=== PATIENT | female | born 1935 | race Caucasian/White ===

== ENCOUNTER 2022-03-16 07:59 | Inpatient (IN) | payer MEDICARE ==
[~2022-03-16] VITALS: Ht 160 cm; Wt 84.7 kg
[2022-03-16 08:20] LABS: BASOPHILS % (AUTO) 0.3 % (0.0-5.0); EOSINOPHILS % (AUTO) 0.9 % (0.0-8.0); HEMATOCRIT 34.1 % (36-48); LYMPHOCYTES % (AUTO) 18.7 % (21.0-51.0); MEAN CORPUSCULAR HEMOGLOBIN 28.5 pg (27.0-33.0); MEAN CORPUSCULAR HGB CONC 32.6 g/dL (32.0-36.0); MEAN CORPUSCULAR VOLUME 87.7 fL (79-99); MONOCYTES % (AUTO) 6.5 % (3.0-13.0); NEUTROPHILS % (AUTO) 73.3 % (40.0-77.0); PLATELET COUNT (AUTO) 183 K/uL (130-400); RED BLOOD CELL COUNT(AUTO) 3.89 MIL/uL (4.00-5.50); RED CELL DISTRIBUTION WIDTH 13.9 % (11.0-15.5); WHITE BLOOD COUNT (AUTO) 11.5 K/uL (4.8-10.8)
[2022-03-16 08:28] LABS: CREATININE 1.6 mg/dL (0.5-1.5); POTASSIUM 4.5 mmol/L (3.5-5.1)
[2022-03-16 08:33] LABS: ALBUMIN 2.8 g/dL (3.5-5.0); BILIRUBIN,TOTAL 0.5 mg/dL (0.2-1.0); TOTAL PROTEIN, SERUM 6.5 g/dL (6.0-8.3)
[2022-03-16 08:50] LABS: PARTIAL THROMBOPLASTIN TIME 42.6 SEC (26.3-35.5)
[2022-03-16 09:00] LABS: MAGNESIUM 2.5 mg/dL (1.80-2.40); THYROID STIMULATING HORMONE 5.02 uIU/mL (0.36-3.74)
[2022-03-16] MEDS ORDERED: ACETAMINOPHEN 325 MG TAB PO PRN ×3 (09:00→09:30)
[2022-03-16] MEDS ORDERED: ONDANSETRON 4MG INJ IVP PRN (09:00)
[2022-03-16 09:09] LABS: INR 3.81 (0.85-1.15); PROTHROMBIN TIME 36.8 SEC (9.6-11.6)
[2022-03-16] MEDS ORDERED: WARF-57 PO ×2 (09:13→10:05)
[2022-03-16] MEDS ORDERED: METF-444 PO (09:14)
[2022-03-16] MEDS ORDERED: IRBE300T18 PO (09:15)
[2022-03-16] MEDS ORDERED: LOVA10TA2 PO (09:16)
[2022-03-16] MEDS: 0.9%NACL 1000ML 1,000 ML IV SCH (09:17)
[2022-03-16] MEDS ORDERED: ONDANSETRON 4MG INJ IV PRN (09:30)
[2022-03-16] MEDS ORDERED: DIPHENHYDRAMINE HCL 25 MG CAPSULE PO PRN (09:30)
[2022-03-16] MEDS ORDERED: POTASSIUM CHLORIDE 10% ELIXIR 20 MEQ/15 ML UDCUP PO PRN (09:30)
[2022-03-16] MEDS ORDERED: KCL 20 MEQ ERTAB PO PRN (09:30)
[2022-03-16] MEDS ORDERED: POTASSIUM CHLORIDE 20MEQ/100ML 100 ML IV PRN ×2 (09:30)
[2022-03-16] MEDS ORDERED: LIDOCAINE HCL-MPF 1% 2ML VIAL IV PRN ×2 (09:30)
[2022-03-16] MEDS ORDERED: VANCOMYCIN 1G 1 GM in 0.9% NACL 250ML 250 ML IV PRN (12:30)
[2022-03-16] MEDS: PHYTONADIONE 10 MG/1 ML AMP SQ SCH (14:11)
[2022-03-17] VITALS (37 sets, daily range): BP systolic 84–198; BP diastolic 35–110
[2022-03-17] MEDS ORDERED: DEXTROSE 50%-WATER 50 ML DISP.SYRIN IV PRN (01:30)
[2022-03-17] MEDS ORDERED: GLUCAGON 1MG KIT 1 MG ML IM PRN (01:30)
[2022-03-17] MEDS ORDERED: HYDRALAZINE 20MG/ML VIAL IV PRN (01:30)
[2022-03-17 05:56] LABS: BASOPHILS % (AUTO) 0.3 % (0.0-5.0); EOSINOPHILS % (AUTO) 0.7 % (0.0-8.0); HEMATOCRIT 32.8 % (36-48); LYMPHOCYTES % (AUTO) 13.6 % (21.0-51.0); MEAN CORPUSCULAR HEMOGLOBIN 27.8 pg (27.0-33.0); MEAN CORPUSCULAR HGB CONC 31.4 g/dL (32.0-36.0); MEAN CORPUSCULAR VOLUME 88.4 fL (79-99); MONOCYTES % (AUTO) 6.6 % (3.0-13.0); NEUTROPHILS % (AUTO) 78.5 % (40.0-77.0); PLATELET COUNT (AUTO) 178 K/uL (130-400); RED BLOOD CELL COUNT(AUTO) 3.71 MIL/uL (4.00-5.50); RED CELL DISTRIBUTION WIDTH 13.9 % (11.0-15.5); WHITE BLOOD COUNT (AUTO) 9.8 K/uL (4.8-10.8)
[2022-03-17 06:11] LABS: CREATININE 1.4 mg/dL (0.5-1.5); POTASSIUM 4.5 mmol/L (3.5-5.1)
[2022-03-17 06:14] LABS: PROTHROMBIN TIME 34.5 SEC (9.6-11.6)
[2022-03-17 06:18] LABS: INR 3.55 (0.85-1.15)
[2022-03-17] MEDS ORDERED: KETOROLAC 30MG VIAL (30MG/ML) IVP SCH (06:30)
[2022-03-17] MEDS: INSULIN HUMULIN R 100 UNIT/ML 3ML SQ SCH ×4 (06:30→22:23)
[2022-03-17] MEDS: 0.9%NACL 1000ML 1,000 ML IV SCH ×2 (06:43→16:14)
[2022-03-17] MEDS ORDERED: IRBESARTAN 300 MG PO SCH (09:00)
[2022-03-17] MEDS ORDERED: LOSARTAN 100 MG TABLET PO SCH (09:00)
[2022-03-17] MEDS: ENOXAPARIN SODIUM 30 MG/0.3 ML SQ SCH (09:00)
[2022-03-17] MEDS ORDERED: MORPHINE 2 MG SYG IV PRN (10:00)
[2022-03-17] MEDS: ATORVASTATIN 10 MG TABLET PO SCH (10:29)
[2022-03-17] MEDS: PANTOPRAZOLE 40 MG TAB DR PO SCH (10:29)
[2022-03-17] MEDS: PHYTONADIONE 10 MG/1 ML AMP SQ SCH (12:30)
[2022-03-17] MEDS ORDERED: PHYTONADIONE 10 MG/1 ML AMP SQ SCH (13:30)
[2022-03-17 20:27] LABS: APPEARANCE,URINE Clear (CLEAR); BILIRUBIN,URINE Negative (NEGATIVE); COLOR,URINE Yellow (YELLOW); GLUCOSE, URINE (UA) Negative (NEGATIVE); KETONES,URINE Trace mg/dL (NEGATIVE); LEUKOCYTE ESTERASE ,URINE Trace (NEGATIVE); NITRATE,URINE Negative (NEGATIVE); OCCULT BLOOD,URINE Small (NEGATIVE); PROTEIN,URINE >=1000 mg/dL (NEGATIVE)
[2022-03-17 20:43] LABS: BACTERIA,URINE Few /HPF (None Seen); RBC,URINE 0-1 /HPF (0-1); SQUAMOUS EPITHELIAL CELL,UR Few /HPF (0-2)
[2022-03-17 20:44] LABS: MUCUS,URINE Rare LPF (None Seen)
[2022-03-18] VITALS (23 sets, daily range): BP systolic 102–185; BP diastolic 40–88
[2022-03-18] MEDS: 0.9%NACL 1000ML 1,000 ML IV SCH ×2 (00:36→20:14)
[2022-03-18 04:07] LABS: BASOPHILS % (AUTO) 0.4 % (0.0-5.0); EOSINOPHILS % (AUTO) 1.3 % (0.0-8.0); HEMATOCRIT 31.5 % (36-48); LYMPHOCYTES % (AUTO) 14.4 % (21.0-51.0); MEAN CORPUSCULAR HEMOGLOBIN 28.8 pg (27.0-33.0); MEAN CORPUSCULAR HGB CONC 32.7 g/dL (32.0-36.0); MONOCYTES % (AUTO) 7.3 % (3.0-13.0); NEUTROPHILS % (AUTO) 76.4 % (40.0-77.0); PLATELET COUNT (AUTO) 195 K/uL (130-400); RED BLOOD CELL COUNT(AUTO) 3.58 MIL/uL (4.00-5.50); RED CELL DISTRIBUTION WIDTH 13.9 % (11.0-15.5); WHITE BLOOD COUNT (AUTO) 9.4 K/uL (4.8-10.8)
[2022-03-18 04:25] LABS: INR 1.87 (0.85-1.15); PROTHROMBIN TIME 19.3 SEC (9.6-11.6)
[2022-03-18 04:54] LABS: CREATININE 1.3 mg/dL (0.5-1.5); POTASSIUM 4.5 mmol/L (3.5-5.1)
[2022-03-18] MEDS: INSULIN HUMULIN R 100 UNIT/ML 3ML SQ SCH ×4 (07:22→20:17)
[2022-03-18] MEDS: ENOXAPARIN SODIUM 30 MG/0.3 ML SQ SCH (07:51)
[2022-03-18] MEDS ORDERED: PHARMACY COMMUNICATION MISC SCH (08:00)
[2022-03-18] MEDS: PANTOPRAZOLE 40 MG TAB DR PO SCH (08:14)
[2022-03-18] MEDS: ATORVASTATIN 10 MG TABLET PO SCH (08:14)
[2022-03-18] MEDS ORDERED: BUPIVACAINE/PF 0.25% 30ML VIAL IJ ONE (09:46)
[2022-03-18] MEDS ORDERED: MEPERIDINE-PF 25 MG/ML SYG ONE ×2 (09:47→10:53)
[2022-03-18] MEDS ORDERED: VANCOMYCIN 1G/250ML KIT 500 ML IV ONE (09:47)
[2022-03-18] MEDS ORDERED: MIDAZOLAM HCL 1 MG/ML 2ML VIAL ONE ×2 (09:47→10:54)
[2022-03-18] MEDS ORDERED: LIDOCAINE HCL 1% MDV 50ML VIAL ONE (09:47)
[2022-03-18] MEDS ORDERED: IOHEXOL-350 50ML VIAL IV ONE (10:35)
[2022-03-18] MEDS ORDERED: ATROPINE 1MG SYG IVP ONE (11:07)
[2022-03-18] MEDS ORDERED: EPINEPHRINE PF 1MG AMP ONE (11:22)
[2022-03-18] MEDS ORDERED: ACETAMINOPHEN WITH CODEINE 1 TAB TAB PO PRN (12:30)
[2022-03-18] MEDS: METOPROLOL TARTRATE 25 MG TAB PO SCH ×2 (13:37→20:08)
[2022-03-18] MEDS: WARFARIN SODIUM 5 MG TAB PO SCH (16:15)
[2022-03-18] MEDS ORDERED: IRBE300T18 PO (23:47)
[2022-03-18] MEDS ORDERED: METF-444 PO (23:47)
[2022-03-19] MEDS: 0.9%NACL 1000ML 1,000 ML IV SCH ×3 (00:07→17:02)
[2022-03-19 03:45] VITALS: BP 128/57
[2022-03-19 03:51] LABS: HEMATOCRIT 30.4 % (36-48); MEAN CORPUSCULAR HEMOGLOBIN 27.7 pg (27.0-33.0); MEAN CORPUSCULAR HGB CONC 30.6 g/dL (32.0-36.0); MEAN CORPUSCULAR VOLUME 90.5 fL (79-99); RED BLOOD CELL COUNT(AUTO) 3.36 MIL/uL (4.00-5.50); RED CELL DISTRIBUTION WIDTH 13.9 % (11.0-15.5); WHITE BLOOD COUNT (AUTO) 8.5 K/uL (4.8-10.8)
[2022-03-19 03:55] LABS: POTASSIUM 4.6 mmol/L (3.5-5.1)
[2022-03-19 04:06] LABS: INR 1.43 (0.85-1.15); PROTHROMBIN TIME 15.1 SEC (9.6-11.6)
[2022-03-19] MEDS: INSULIN HUMULIN R 100 UNIT/ML 3ML SQ SCH ×4 (05:50→20:23)
[2022-03-19] MEDS ORDERED: METO25TA6 PO (07:48)
[2022-03-19 08:00] VITALS: BP 134/60
[2022-03-19] MEDS: ATORVASTATIN 10 MG TABLET PO SCH (09:27)
[2022-03-19] MEDS: METOPROLOL TARTRATE 25 MG TAB PO SCH ×2 (09:27→20:23)
[2022-03-19] MEDS: PANTOPRAZOLE 40 MG TAB DR PO SCH (09:27)
[2022-03-19 12:00] VITALS: BP 121/57
[2022-03-19 15:57] VITALS: BP 143/72
[2022-03-19] MEDS: WARFARIN SODIUM 5 MG TAB PO SCH (16:48)
[2022-03-19 19:08] VITALS: BP 142/43
[2022-03-19 23:30] VITALS: BP 128/86
[2022-03-20] MEDS: 0.9%NACL 1000ML 1,000 ML IV SCH ×2 (00:30→09:01)
[2022-03-20 03:47] VITALS: BP 128/64
[2022-03-20 04:48] LABS: CREATININE 1.1 mg/dL (0.5-1.5); POTASSIUM 4.3 mmol/L (3.5-5.1)
[2022-03-20 04:50] LABS: INR 1.38 (0.85-1.15); PROTHROMBIN TIME 14.6 SEC (9.6-11.6)
[2022-03-20] MEDS: INSULIN HUMULIN R 100 UNIT/ML 3ML SQ SCH ×2 (06:21→11:14)
[2022-03-20 06:32] VITALS: BP 136/52
[2022-03-20 07:43] VITALS: BP 160/66
[2022-03-20] MEDS: ATORVASTATIN 10 MG TABLET PO SCH (08:06)
[2022-03-20] MEDS: METOPROLOL TARTRATE 25 MG TAB PO SCH (08:06)
[2022-03-20] MEDS: PANTOPRAZOLE 40 MG TAB DR PO SCH (08:06)
[2022-03-20 11:15] VITALS: BP 156/72
[2022-03-20] MEDS: WARFARIN SODIUM 5 MG TAB PO SCH (14:26)
== END 2022-03-20 14:30 | disposition home or self-care (01) | DRG 243 ==
LOC: EDH 07:59 → EDHIP 09:19 → INTOOBSV 09:19 → OBSVTOIN 09:19 → 2BH 03-17 00:18 → 2DH 03-18 18:40
PROVIDERS: ADMIT Internal Medicine; ATTEND Internal Medicine
PROC: 0JH607Z Insertion of Cardiac Resynchronization Pacemaker Pulse Generator into Chest Subcutaneous Tissue and Fascia, Open Approach (ICD-10-PCS; principal; 2022-03-18)
PROC: 02H63JZ Insertion of Pacemaker Lead into Right Atrium, Percutaneous Approach (ICD-10-PCS; 2022-03-18)
PROC: 02HK3JZ Insertion of Pacemaker Lead into Right Ventricle, Percutaneous Approach (ICD-10-PCS; 2022-03-18)
PROC: 02HL3JZ Insertion of Pacemaker Lead into Left Ventricle, Percutaneous Approach (ICD-10-PCS; 2022-03-18)
DX: I44.1 Atrioventricular block, second degree (principal); D68.69 Other thrombophilia; N17.9 Acute kidney failure, unspecified; D72.829 Elevated white blood cell count, unspecified; Z20.822 Contact with and (suspected) exposure to COVID-19; I87.8 Other specified disorders of veins; M85.80 Other specified disorders of bone density and structure, unspecified site; E11.22 Type 2 diabetes mellitus with diabetic chronic kidney disease; N18.31 Chronic kidney disease, stage 3a; I12.9 Hypertensive chronic kidney disease with stage 1 through stage 4 chronic kidney disease, or unspecified chronic kidney disease; I70.0 Atherosclerosis of aorta; E11.65 Type 2 diabetes mellitus with hyperglycemia; E11.42 Type 2 diabetes mellitus with diabetic polyneuropathy; I08.0 Rheumatic disorders of both mitral and aortic valves; E78.5 Hyperlipidemia, unspecified; M19.90 Unspecified osteoarthritis, unspecified site; Z86.718 Personal history of other venous thrombosis and embolism; Z79.01 Long term (current) use of anticoagulants; E11.51 Type 2 diabetes mellitus with diabetic peripheral angiopathy without gangrene; Z79.899 Other long term (current) drug therapy; Z83.3 Family history of diabetes mellitus; Z82.49 Family history of ischemic heart disease and other diseases of the circulatory system
CPT/HCPCS: 33208; 33225; 36415; 71045; 80048; 80053; 81001; 82948; 83735; 83880; 84443; 84484; 85025; 85027; 85610; 85730; 87088; 87635; 93005; 93306; 93356; 97039; 99156; 99157; C1769; C1785; C1898; C1900; C2621; G0378; J0171; J0461; J1815; J1885; J2175; J2250; J2405; J3370; J3430; J3490; J7030; Q9967

== ENCOUNTER 2022-05-05 11:17 | Inpatient (IN) | payer MEDICARE ==
[~2022-05-05] VITALS: Ht 160 cm; Wt 73.1 kg
[~2022-05-05 11:17] MED LIST: CALC-1125 PO; CYAN-35 PO; LOVA10TA2 PO; METO-408 PO; POTA-202 PO; VITAMIN D PO
[2022-05-05 12:15] LABS: CREATININE 1.8 mg/dL (0.5-1.5); POTASSIUM 4.1 mmol/L (3.5-5.1)
[2022-05-05 12:20] LABS: ALBUMIN 2.6 g/dL (3.5-5.0); BILIRUBIN,TOTAL 0.3 mg/dL (0.2-1.0); TOTAL PROTEIN, SERUM 6.8 g/dL (6.0-8.3)
[2022-05-05 12:29] LABS: B-TYPE NATRIURETIC PEPTIDE 2240 pg/mL (0-100)
[2022-05-05 12:30] LABS: BASOPHILS % (AUTO) 0.3 % (0.0-5.0); EOSINOPHILS % (AUTO) 0.6 % (0.0-8.0); HEMATOCRIT 33.2 % (36-48); LYMPHOCYTES % (AUTO) 13.5 % (21.0-51.0); MEAN CORPUSCULAR HEMOGLOBIN 27.6 pg (27.0-33.0); MEAN CORPUSCULAR HGB CONC 32.2 g/dL (32.0-36.0); MEAN CORPUSCULAR VOLUME 85.8 fL (79-99); MONOCYTES % (AUTO) 5.4 % (3.0-13.0); NEUTROPHILS % (AUTO) 79.7 % (40.0-77.0); PLATELET COUNT (AUTO) 225 K/uL (130-400); RED BLOOD CELL COUNT(AUTO) 3.87 MIL/uL (4.00-5.50); RED CELL DISTRIBUTION WIDTH 15.1 % (11.0-15.5); WHITE BLOOD COUNT (AUTO) 8.7 K/uL (4.8-10.8)
[2022-05-05] MEDS ORDERED: PHARMACY COMMUNICATION MISC SCH (13:00)
[2022-05-05] MEDS ORDERED: FURO-152 PO (13:26)
[2022-05-05] MEDS ORDERED: ROSU5TAB PO (13:26)
[2022-05-05] MEDS ORDERED: PANT40TA PO (13:26)
[2022-05-05] MEDS ORDERED: SPIR25TA6 PO (13:26)
[2022-05-05] MEDS ORDERED: INSU100I15 SQ (13:26)
[2022-05-05] MEDS ORDERED: APIX5TAB PO (13:26)
[2022-05-05] MEDS ORDERED: INSU100V39 SQ (13:26)
[2022-05-05] MEDS ORDERED: METO25TA6 PO (13:26)
[2022-05-05] MEDS ORDERED: CHOL100046 PO (13:27)
[2022-05-05 13:30] LABS: APPEARANCE,URINE Cloudy (CLEAR); BILIRUBIN,URINE Negative (NEGATIVE); COLOR,URINE Yellow (YELLOW); GLUCOSE, URINE (UA) Negative (NEGATIVE); KETONES,URINE Negative (NEGATIVE); LEUKOCYTE ESTERASE ,URINE Trace (NEGATIVE); NITRATE,URINE Negative (NEGATIVE); OCCULT BLOOD,URINE Negative (NEGATIVE); PROTEIN,URINE POS 1+ mg/dL (NEGATIVE)
[2022-05-05] MEDS ORDERED: BENZONATATE 100 MG CAPSULE PO ONE (13:30)
[2022-05-05 13:47] LABS: BACTERIA,URINE Few /HPF (None Seen); RBC,URINE 0-1 /HPF (0-1); SQUAMOUS EPITHELIAL CELL,UR 0-2 /HPF (0-2)
[2022-05-05 16:15] VITALS: BP 101/53
[2022-05-05] MEDS ORDERED: ACETAMINOPHEN 325 MG TAB PO PRN ×2 (17:30)
[2022-05-05] MEDS ORDERED: MAG/ALUM/SIMETH 30 ML UDCUP PO PRN (17:30)
[2022-05-05] MEDS ORDERED: DIPHENHYDRAMINE HCL 25 MG CAPSULE PO PRN (17:30)
[2022-05-05] MEDS ORDERED: DiphenhydrAMINE HCL 50 MG/ML VIAL IV PRN (17:30)
[2022-05-05] MEDS ORDERED: LACTULOSE 20 GM/30 ML UDCUP PO PRN (17:30)
[2022-05-05] MEDS ORDERED: ONDANSETRON 4MG INJ IV PRN (17:30)
[2022-05-05] MEDS ORDERED: LIDOCAINE HCL-MPF 1% 2ML VIAL IV PRN (18:00)
[2022-05-05] MEDS ORDERED: POTASSIUM CHLORIDE 10MEQ/100ML 100 ML IV PRN (18:00)
[2022-05-05] MEDS ORDERED: AZITHROMYCIN 500MG+NS 250ML IVPB SCH (18:00)
[2022-05-05] MEDS ORDERED: GLUCAGON 1MG KIT 1 MG ML IM PRN (18:00)
[2022-05-05] MEDS ORDERED: CEFTRIAXONE 2GM VIAL IVP SCH (18:00)
[2022-05-05] MEDS ORDERED: MAGNESIUM 2GM PREMIX 50ML 50 ML IV PRN (18:00)
[2022-05-05] MEDS ORDERED: POTASSIUM CHLORIDE 10% ELIXIR 20 MEQ/15 ML UDCUP PO PRN (18:00)
[2022-05-05] MEDS ORDERED: ENOXAPARIN SODIUM 80 MG/0.8 ML SQ SCH (18:00)
[2022-05-05] MEDS ORDERED: KCL 20 MEQ ERTAB PO PRN (18:00)
[2022-05-05] MEDS ORDERED: DEXTROSE 50%-WATER 50 ML DISP.SYRIN IV PRN (18:00)
[2022-05-05 18:20] LABS: ABG BASE EXCESS -1.6 mmol/L (-2.0-3.0); ABG HCO3 21.8 mmol/L (21.0-28.0); ABG OXYGEN SATURATION 96.5 % (95.0-99.0); ABG PCO2 33 mmHg (32-45)
[2022-05-05 20:17] VITALS: BP 92/59
[2022-05-05] MEDS ORDERED: SOLU-MEDROL 125MG VIAL IVP ONE (21:00)
[2022-05-05] MEDS: INSULIN HUMULIN R 100 UNIT/ML 3ML SQ SCH (21:00)
[2022-05-05] MEDS: METOPROLOL TARTRATE 25 MG TAB PO SCH (22:06)
[2022-05-05 23:22] VITALS: BP 115/77
[2022-05-06] MEDS ORDERED: SOLU-MEDROL 40MG VIAL ONE (01:34)
[2022-05-06] MEDS: SOLU-MEDROL 40MG VIAL IVP SCH ×3 (02:00→14:38)
[2022-05-06 03:26] VITALS: BP 126/56
[2022-05-06 05:32] LABS: INR 1.16 (0.85-1.15); PROTHROMBIN TIME 12.5 SEC (9.6-11.6)
[2022-05-06 05:33] LABS: PARTIAL THROMBOPLASTIN TIME 40.7 SEC (26.3-35.5)
[2022-05-06 05:40] LABS: CREATININE 1.6 mg/dL (0.5-1.5); CRP QUANTITATIVE 61.4 mg/L (0.00-9.0)
[2022-05-06 05:47] LABS: HEMOGLOBIN A1C 7.2 % (4.0-6.0)
[2022-05-06] MEDS: PHARMACY COMMUNICATION**REMDESIVIR ORDER MISC SCH ×4 (06:30→22:26)
[2022-05-06] MEDS: INSULIN HUMULIN R 100 UNIT/ML 3ML SQ SCH ×4 (06:56→20:19)
[2022-05-06] MEDS: PANTOPRAZOLE 40 MG TAB DR PO SCH (07:58)
[2022-05-06] MEDS: ATORVASTATIN 10 MG TABLET PO SCH (07:58)
[2022-05-06] MEDS: METOPROLOL TARTRATE 25 MG TAB PO SCH ×2 (07:58→20:16)
[2022-05-06 08:41] VITALS: BP 103/58
[2022-05-06] MEDS ORDERED: ENOXAPARIN SODIUM 30 MG/0.3 ML SQ SCH (09:00)
[2022-05-06] MEDS ORDERED: DEXAMETHASONE SOD PHOSPHATE 4 MG/ML 1ML VIAL IVP SCH (09:00)
[2022-05-06 11:00] VITALS: BP 102/59
[2022-05-06 16:00] VITALS: BP 101/58
[2022-05-06 17:42] LABS: BASOPHILS % (AUTO) 0.2 % (0.0-5.0); HEMATOCRIT 33.8 % (36-48); LYMPHOCYTES % (AUTO) 6.5 % (21.0-51.0); MEAN CORPUSCULAR VOLUME 90.9 fL (79-99); MONOCYTES % (AUTO) 1.8 % (3.0-13.0); NEUTROPHILS % (AUTO) 91.3 % (40.0-77.0); PLATELET COUNT (AUTO) 220 K/uL (130-400); RED BLOOD CELL COUNT(AUTO) 3.72 MIL/uL (4.00-5.50); RED CELL DISTRIBUTION WIDTH 15.5 % (11.0-15.5); WHITE BLOOD COUNT (AUTO) 6.3 K/uL (4.8-10.8)
[2022-05-06] MEDS ORDERED: 0.9% NACL 250ML 250 ML ONE (19:54)
[2022-05-06] MEDS: ENOXAPARIN SODIUM 80 MG/0.8 ML SQ SCH (20:07)
[2022-05-06] MEDS: CEFTRIAXONE 2GM VIAL IVP SCH (20:08)
[2022-05-06] MEDS: AZITHROMYCIN 500MG+NS 250ML IVPB SCH (20:08)
[2022-05-06 20:15] VITALS: BP 99/52
[2022-05-06 23:36] VITALS: BP 109/53
[2022-05-07 04:15] LABS: HEMATOCRIT 31.8 % (36-48); MEAN CORPUSCULAR HEMOGLOBIN 27.7 pg (27.0-33.0); MEAN CORPUSCULAR HGB CONC 32.1 g/dL (32.0-36.0); MEAN CORPUSCULAR VOLUME 86.4 fL (79-99); RED BLOOD CELL COUNT(AUTO) 3.68 MIL/uL (4.00-5.50); RED CELL DISTRIBUTION WIDTH 15.1 % (11.0-15.5); WHITE BLOOD COUNT (AUTO) 13.5 K/uL (4.8-10.8)
[2022-05-07 04:39] LABS: CREATININE 1.8 mg/dL (0.5-1.5); POTASSIUM 4.5 mmol/L (3.5-5.1)
[2022-05-07 05:00] VITALS: BP 116/53
[2022-05-07] MEDS: PHARMACY COMMUNICATION**REMDESIVIR ORDER MISC SCH ×2 (05:40→22:30)
[2022-05-07] MEDS: INSULIN HUMULIN R 100 UNIT/ML 3ML SQ SCH ×4 (06:03→21:00)
[2022-05-07 07:30] VITALS: BP 154/54
[2022-05-07] MEDS: ATORVASTATIN 10 MG TABLET PO SCH (08:57)
[2022-05-07] MEDS: METOPROLOL TARTRATE 25 MG TAB PO SCH ×2 (08:57→21:00)
[2022-05-07] MEDS: PANTOPRAZOLE 40 MG TAB DR PO SCH (08:57)
[2022-05-07 11:00] VITALS: BP 115/71
[2022-05-07 15:30] VITALS: BP 108/57
[2022-05-07 17:27] LABS: ABG BASE EXCESS 0.6 mmol/L (-2.0-3.0); ABG HCO3 24.7 mmol/L (21.0-28.0); ABG OXYGEN SATURATION 96.3 % (95.0-99.0); ABG PCO2 38 mmHg (32-45)
[2022-05-07 17:54] LABS: BASOPHILS % (AUTO) 0.1 % (0.0-5.0); LYMPHOCYTES % (AUTO) 7.9 % (21.0-51.0); MEAN CORPUSCULAR HEMOGLOBIN 27.9 pg (27.0-33.0); MEAN CORPUSCULAR HGB CONC 32.5 g/dL (32.0-36.0); MEAN CORPUSCULAR VOLUME 85.8 fL (79-99); MONOCYTES % (AUTO) 4.1 % (3.0-13.0); NEUTROPHILS % (AUTO) 87.4 % (40.0-77.0); PLATELET COUNT (AUTO) 222 K/uL (130-400); RED BLOOD CELL COUNT(AUTO) 3.73 MIL/uL (4.00-5.50); RED CELL DISTRIBUTION WIDTH 15.1 % (11.0-15.5); WHITE BLOOD COUNT (AUTO) 15.4 K/uL (4.8-10.8)
[2022-05-07 20:00] VITALS: BP 99/54
[2022-05-07] MEDS ORDERED: 0.9% NACL 250ML 250 ML ONE (22:25)
[2022-05-07] MEDS: CEFTRIAXONE 2GM VIAL IVP SCH (22:29)
[2022-05-07] MEDS: AZITHROMYCIN 500MG+NS 250ML IVPB SCH (22:29)
[2022-05-07] MEDS: ENOXAPARIN SODIUM 80 MG/0.8 ML SQ SCH (22:29)
[2022-05-07] MEDS: GUAIFENESIN-DM 200/20 MG 10 ML PO PRN (22:34)
[2022-05-08] VITALS (7 sets, daily range): BP systolic 109–147; BP diastolic 57–76
[2022-05-08 05:06] LABS: BASOPHILS % (AUTO) 0.1 % (0.0-5.0); EOSINOPHILS % (AUTO) 0.1 % (0.0-8.0); HEMATOCRIT 33.6 % (36-48); LYMPHOCYTES % (AUTO) 12.2 % (21.0-51.0); MEAN CORPUSCULAR HEMOGLOBIN 27.9 pg (27.0-33.0); MEAN CORPUSCULAR HGB CONC 32.4 g/dL (32.0-36.0); MEAN CORPUSCULAR VOLUME 86.2 fL (79-99); MONOCYTES % (AUTO) 3.9 % (3.0-13.0); PLATELET COUNT (AUTO) 207 K/uL (130-400); RED CELL DISTRIBUTION WIDTH 15.3 % (11.0-15.5); WHITE BLOOD COUNT (AUTO) 13.8 K/uL (4.8-10.8)
[2022-05-08] MEDS: INSULIN HUMULIN R 100 UNIT/ML 3ML SQ SCH ×4 (06:13→21:16)
[2022-05-08] MEDS: PHARMACY COMMUNICATION**REMDESIVIR ORDER MISC SCH ×4 (06:13→21:17)
[2022-05-08] MEDS: ATORVASTATIN 10 MG TABLET PO SCH (09:42)
[2022-05-08] MEDS: PANTOPRAZOLE 40 MG TAB DR PO SCH (09:42)
[2022-05-08] MEDS: METOPROLOL TARTRATE 25 MG TAB PO SCH ×2 (09:42→20:56)
[2022-05-08 10:23] LABS: CREATININE 1.4 mg/dL (0.5-1.5); POTASSIUM 4.2 mmol/L (3.5-5.1)
[2022-05-08] MEDS ORDERED: BISACODYL 10 MG SUPP.RECT RC SCH (12:00)
[2022-05-08] MEDS ORDERED: MAGNESIUM HYDROXIDE 30 ML/UDCUP PO PRN (12:30)
[2022-05-08] MEDS: CEFTRIAXONE 2GM VIAL IVP SCH (20:55)
[2022-05-08] MEDS: AZITHROMYCIN 500MG+NS 250ML IVPB SCH (20:55)
[2022-05-08] MEDS: ENOXAPARIN SODIUM 80 MG/0.8 ML SQ SCH (20:56)
[2022-05-08] MEDS: DOCUSATE SODIUM 100 MG CAP PO SCH (20:56)
[2022-05-08] MEDS: GUAIFENESIN-DM 200/20 MG 10 ML PO PRN (23:15)
[2022-05-09 03:46] VITALS: BP 118/49
[2022-05-09 05:06] LABS: CREATININE 1.2 mg/dL (0.5-1.5); POTASSIUM 4.2 mmol/L (3.5-5.1)
[2022-05-09] MEDS: PHARMACY COMMUNICATION**REMDESIVIR ORDER MISC SCH ×3 (05:43→22:30)
[2022-05-09] MEDS: INSULIN HUMULIN R 100 UNIT/ML 3ML SQ SCH ×4 (05:43→21:00)
[2022-05-09] MEDS: GUAIFENESIN-DM 200/20 MG 10 ML PO PRN (05:45)
[2022-05-09 07:10] VITALS: BP 130/79
[2022-05-09] MEDS: METOPROLOL TARTRATE 25 MG TAB PO SCH ×2 (09:18→21:55)
[2022-05-09] MEDS: POLYETHYLENE GLYCOL 3350 17 GM POWD.PACK PO SCH (09:18)
[2022-05-09] MEDS: PANTOPRAZOLE 40 MG TAB DR PO SCH (09:18)
[2022-05-09] MEDS: DOCUSATE SODIUM 100 MG CAP PO SCH ×2 (09:18→21:55)
[2022-05-09] MEDS: ATORVASTATIN 10 MG TABLET PO SCH (09:18)
[2022-05-09] MEDS ORDERED: TRAZODONE HCL 50 MG TAB PO PRN (09:30)
[2022-05-09] MEDS: ALBUTEROL 0.083% 2.5 MG/3 ML INH IH PRN (09:55)
[2022-05-09 11:00] VITALS: BP 152/71
[2022-05-09 15:15] VITALS: BP 120/65
[2022-05-09 20:00] VITALS: BP 107/50
[2022-05-09] MEDS: AZITHROMYCIN 500MG+NS 250ML IVPB SCH (21:54)
[2022-05-09] MEDS: CEFTRIAXONE 2GM VIAL IVP SCH (21:54)
[2022-05-09] MEDS: ENOXAPARIN SODIUM 80 MG/0.8 ML SQ SCH (21:55)
[2022-05-10] VITALS: BP 121/46
[2022-05-10 04:00] VITALS: BP 112/58
[2022-05-10 04:15] LABS: CREATININE 0.9 mg/dL (0.5-1.5); POTASSIUM 4.3 mmol/L (3.5-5.1)
[2022-05-10] MEDS: INSULIN HUMULIN R 100 UNIT/ML 3ML SQ SCH ×4 (06:09→21:00)
[2022-05-10] MEDS: ALBUTEROL 0.083% 2.5 MG/3 ML INH IH PRN (06:34)
[2022-05-10] MEDS ORDERED: MORPHINE 4 MG SYG IVP ONE (07:00)
[2022-05-10 07:10] VITALS: BP 95/67
[2022-05-10] MEDS ORDERED: MORPHINE 2 MG SYG ONE (07:19)
[2022-05-10] MEDS: DOCUSATE SODIUM 100 MG CAP PO SCH ×2 (09:19→20:55)
[2022-05-10] MEDS: PANTOPRAZOLE 40 MG TAB DR PO SCH (09:19)
[2022-05-10] MEDS: POTASSIUM CHLORIDE 10MEQ SR TAB PO SCH (09:20)
[2022-05-10] MEDS: ATORVASTATIN 10 MG TABLET PO SCH (09:20)
[2022-05-10] MEDS: FUROSEMIDE 20 MG TABLET PO SCH (09:20)
[2022-05-10] MEDS: POLYETHYLENE GLYCOL 3350 17 GM POWD.PACK PO SCH (09:21)
[2022-05-10] MEDS: METOPROLOL TARTRATE 25 MG TAB PO SCH ×2 (09:21→20:57)
[2022-05-10] MEDS ORDERED: FUROSEMIDE 20MG VIAL IV SCH (10:00)
[2022-05-10 11:05] VITALS: BP 103/53
[2022-05-10] MEDS: PHARMACY COMMUNICATION**REMDESIVIR ORDER MISC SCH (14:30)
[2022-05-10 15:20] VITALS: BP 100/51
[2022-05-10 20:00] VITALS: BP 110/68
[2022-05-10] MEDS ORDERED: 0.9% NACL 250ML 250 ML ONE (20:07)
[2022-05-10] MEDS: CEFTRIAXONE 2GM VIAL IVP SCH (20:55)
[2022-05-10] MEDS: AZITHROMYCIN 500MG+NS 250ML IVPB SCH (20:55)
[2022-05-10] MEDS: ENOXAPARIN SODIUM 80 MG/0.8 ML SQ SCH (21:13)
[2022-05-11 04:00] VITALS: BP 129/57
[2022-05-11 04:01] LABS: POTASSIUM 4.3 mmol/L (3.5-5.1)
[2022-05-11] MEDS: INSULIN HUMULIN R 100 UNIT/ML 3ML SQ SCH ×4 (07:30→20:23)
[2022-05-11 08:00] VITALS: BP 118/82
[2022-05-11] MEDS: POLYETHYLENE GLYCOL 3350 17 GM POWD.PACK PO SCH (08:20)
[2022-05-11] MEDS: PANTOPRAZOLE 40 MG TAB DR PO SCH (08:21)
[2022-05-11] MEDS: ATORVASTATIN 10 MG TABLET PO SCH (08:21)
[2022-05-11] MEDS: DOCUSATE SODIUM 100 MG CAP PO SCH ×2 (08:21→21:37)
[2022-05-11] MEDS: METOPROLOL TARTRATE 25 MG TAB PO SCH ×3 (08:21→21:50)
[2022-05-11] MEDS: POTASSIUM CHLORIDE 10MEQ SR TAB PO SCH (08:21)
[2022-05-11] MEDS: FUROSEMIDE 20 MG TABLET PO SCH ×3 (08:22→21:37)
[2022-05-11 12:00] VITALS: BP 120/58
[2022-05-11] MEDS: PHARMACY COMMUNICATION**REMDESIVIR ORDER MISC SCH ×2 (14:30→22:30)
[2022-05-11 16:00] VITALS: BP 116/70
[2022-05-11] MEDS ORDERED: ASPIRIN 81MG CHEW TAB PO SCH (18:30)
[2022-05-11] MEDS: ALBUTEROL 0.083% 2.5 MG/3 ML INH IH PRN (18:58)
[2022-05-11 20:00] VITALS: BP 104/48
[2022-05-11] MEDS: CEFTRIAXONE 2GM VIAL IVP SCH (21:39)
[2022-05-11] MEDS: ENOXAPARIN SODIUM 80 MG/0.8 ML SQ SCH (21:40)
[2022-05-11 23:44] VITALS: BP 102/54
[2022-05-12 04:36] LABS: HEMATOCRIT 33.6 % (36-48); MEAN CORPUSCULAR HEMOGLOBIN 27.9 pg (27.0-33.0); MEAN CORPUSCULAR HGB CONC 31.8 g/dL (32.0-36.0); MEAN CORPUSCULAR VOLUME 87.7 fL (79-99); RED BLOOD CELL COUNT(AUTO) 3.83 MIL/uL (4.00-5.50); RED CELL DISTRIBUTION WIDTH 15.1 % (11.0-15.5); WHITE BLOOD COUNT (AUTO) 8.3 K/uL (4.8-10.8)
[2022-05-12 04:37] VITALS: BP 133/76
[2022-05-12 04:46] LABS: CREATININE 0.9 mg/dL (0.5-1.5); POTASSIUM 3.9 mmol/L (3.5-5.1)
[2022-05-12] MEDS: DOCUSATE SODIUM 100 MG CAP PO SCH ×2 (07:28→20:50)
[2022-05-12] MEDS: POTASSIUM CHLORIDE 10MEQ SR TAB PO SCH (07:29)
[2022-05-12] MEDS: POLYETHYLENE GLYCOL 3350 17 GM POWD.PACK PO SCH (07:29)
[2022-05-12] MEDS: METOPROLOL TARTRATE 25 MG TAB PO SCH ×2 (07:29→20:50)
[2022-05-12] MEDS: PANTOPRAZOLE 40 MG TAB DR PO SCH (07:29)
[2022-05-12] MEDS: FUROSEMIDE 20 MG TABLET PO SCH ×3 (07:29→23:30)
[2022-05-12] MEDS: ATORVASTATIN 10 MG TABLET PO SCH (07:30)
[2022-05-12] MEDS: ASPIRIN 81MG CHEW TAB PO SCH (07:31)
[2022-05-12 08:00] VITALS: BP 114/60
[2022-05-12] MEDS: INSULIN HUMULIN R 100 UNIT/ML 3ML SQ SCH ×3 (11:51→21:00)
[2022-05-12 12:00] VITALS: BP 118/66
[2022-05-12] MEDS: ALBUTEROL 0.083% 2.5 MG/3 ML INH IH SCH ×2 (13:13→21:31)
[2022-05-12 16:00] VITALS: BP 120/70
[2022-05-12 19:00] VITALS: BP 102/45
[2022-05-12] MEDS: CEFTRIAXONE 2GM VIAL IVP SCH (20:51)
[2022-05-12] MEDS: ENOXAPARIN SODIUM 80 MG/0.8 ML SQ SCH (20:51)
[2022-05-13] VITALS: BP 109/56
[2022-05-13] MEDS: FUROSEMIDE 20 MG TABLET PO SCH ×4 (03:27→23:30)
[2022-05-13 04:00] VITALS: BP 104/48
[2022-05-13 04:15] LABS: HEMATOCRIT 34.7 % (36-48); MEAN CORPUSCULAR HEMOGLOBIN 27.3 pg (27.0-33.0); MEAN CORPUSCULAR HGB CONC 31.1 g/dL (32.0-36.0); MEAN CORPUSCULAR VOLUME 87.6 fL (79-99); RED BLOOD CELL COUNT(AUTO) 3.96 MIL/uL (4.00-5.50); RED CELL DISTRIBUTION WIDTH 15.3 % (11.0-15.5); WHITE BLOOD COUNT (AUTO) 8.1 K/uL (4.8-10.8)
[2022-05-13 04:32] LABS: ALBUMIN 2.1 g/dL (3.5-5.0); BILIRUBIN,TOTAL 0.2 mg/dL (0.2-1.0); INR 1.07 (0.85-1.15); MAGNESIUM 1.7 mg/dL (1.80-2.40); PHOSPHORUS 2.6 mg/dL (2.5-4.9); POTASSIUM 4.7 mmol/L (3.5-5.1); PROTHROMBIN TIME 11.6 SEC (9.6-11.6); THYROID STIMULATING HORMONE 3.72 uIU/mL (0.36-3.74); TOTAL PROTEIN, SERUM 5.6 g/dL (6.0-8.3)
[2022-05-13 04:33] LABS: PARTIAL THROMBOPLASTIN TIME 35.8 SEC (26.3-35.5)
[2022-05-13] MEDS: INSULIN HUMULIN R 100 UNIT/ML 3ML SQ SCH ×4 (06:17→21:00)
[2022-05-13] MEDS: ALBUTEROL 0.083% 2.5 MG/3 ML INH IH SCH ×3 (07:09→19:04)
[2022-05-13 08:50] VITALS: BP 129/52
[2022-05-13] MEDS: PANTOPRAZOLE 40 MG TAB DR PO SCH (10:03)
[2022-05-13] MEDS: DOCUSATE SODIUM 100 MG CAP PO SCH ×2 (10:03→22:05)
[2022-05-13] MEDS: POLYETHYLENE GLYCOL 3350 17 GM POWD.PACK PO SCH (10:04)
[2022-05-13] MEDS: METOPROLOL TARTRATE 25 MG TAB PO SCH ×2 (10:04→22:05)
[2022-05-13] MEDS: ATORVASTATIN 10 MG TABLET PO SCH (10:04)
[2022-05-13] MEDS: ASPIRIN 81MG CHEW TAB PO SCH (10:05)
[2022-05-13] MEDS: POTASSIUM CHLORIDE 10MEQ SR TAB PO SCH (10:05)
[2022-05-13] MEDS ORDERED: MAGNESIUM 2GM PREMIX 50ML 50 ML IV SCH (12:00)
[2022-05-13 12:18] VITALS: BP 130/54
[2022-05-13 18:44] VITALS: BP 96/51
[2022-05-13 19:00] VITALS: BP 95/50
[2022-05-13] MEDS: CEFTRIAXONE 2GM VIAL IVP SCH (22:05)
[2022-05-13] MEDS: ENOXAPARIN SODIUM 80 MG/0.8 ML SQ SCH (22:06)
[2022-05-14] VITALS: BP 117/49
[2022-05-14 04:00] VITALS: BP 122/45
[2022-05-14] MEDS: INSULIN HUMULIN R 100 UNIT/ML 3ML SQ SCH ×4 (06:31→21:43)
[2022-05-14] MEDS: FUROSEMIDE 20 MG TABLET PO SCH ×3 (06:31→17:18)
[2022-05-14] MEDS: ALBUTEROL 0.083% 2.5 MG/3 ML INH IH SCH ×2 (06:44→21:57)
[2022-05-14 07:46] LABS: POTASSIUM 4.1 mmol/L (3.5-5.1)
[2022-05-14 08:00] VITALS: BP 115/48
[2022-05-14] MEDS: ASPIRIN 81MG CHEW TAB PO SCH (08:55)
[2022-05-14] MEDS: POTASSIUM CHLORIDE 10MEQ SR TAB PO SCH (08:55)
[2022-05-14] MEDS: PANTOPRAZOLE 40 MG TAB DR PO SCH (08:56)
[2022-05-14] MEDS: POLYETHYLENE GLYCOL 3350 17 GM POWD.PACK PO SCH (08:56)
[2022-05-14] MEDS: METOPROLOL TARTRATE 25 MG TAB PO SCH ×2 (08:56→21:39)
[2022-05-14] MEDS: ATORVASTATIN 10 MG TABLET PO SCH (08:56)
[2022-05-14] MEDS: DOCUSATE SODIUM 100 MG CAP PO SCH ×2 (08:57→21:39)
[2022-05-14 11:58] VITALS: BP 110/48
[2022-05-14 16:00] VITALS: BP 104/56
[2022-05-14 19:00] VITALS: BP 89/42
[2022-05-14] MEDS: ENOXAPARIN SODIUM 80 MG/0.8 ML SQ SCH (21:40)
[2022-05-14] MEDS: CEFTRIAXONE 2GM VIAL IVP SCH (21:40)
[2022-05-15] VITALS: BP 96/43
[2022-05-15] MEDS: FUROSEMIDE 20 MG TABLET PO SCH ×4 (00:30→21:00)
[2022-05-15 04:00] VITALS: BP 104/54
[2022-05-15] MEDS: ALBUTEROL 0.083% 2.5 MG/3 ML INH IH SCH ×3 (06:13→18:14)
[2022-05-15] MEDS: INSULIN HUMULIN R 100 UNIT/ML 3ML SQ SCH ×4 (06:41→21:00)
[2022-05-15 07:30] VITALS: BP 84/42
[2022-05-15] MEDS: METOPROLOL TARTRATE 25 MG TAB PO SCH ×2 (09:10→21:00)
[2022-05-15] MEDS: DOCUSATE SODIUM 100 MG CAP PO SCH ×2 (09:11→21:02)
[2022-05-15] MEDS: POTASSIUM CHLORIDE 10MEQ SR TAB PO SCH (09:11)
[2022-05-15] MEDS: ASPIRIN 81MG CHEW TAB PO SCH (09:11)
[2022-05-15] MEDS: ATORVASTATIN 10 MG TABLET PO SCH (09:11)
[2022-05-15] MEDS: PANTOPRAZOLE 40 MG TAB DR PO SCH (09:12)
[2022-05-15] MEDS: POLYETHYLENE GLYCOL 3350 17 GM POWD.PACK PO SCH (09:12)
[2022-05-15 11:00] VITALS: BP 93/48
[2022-05-15 16:00] VITALS: BP 100/49
[2022-05-15 20:00] VITALS: BP 96/42
[2022-05-15] MEDS: CEFTRIAXONE 2GM VIAL IVP SCH (21:02)
[2022-05-15] MEDS: ENOXAPARIN SODIUM 80 MG/0.8 ML SQ SCH (21:04)
[2022-05-16] VITALS: BP 99/50
[2022-05-16 04:00] VITALS: BP 96/44
[2022-05-16 04:55] LABS: HEMATOCRIT 33.3 % (36-48); MEAN CORPUSCULAR HEMOGLOBIN 27.5 pg (27.0-33.0); MEAN CORPUSCULAR HGB CONC 31.8 g/dL (32.0-36.0); MEAN CORPUSCULAR VOLUME 86.5 fL (79-99); RED BLOOD CELL COUNT(AUTO) 3.85 MIL/uL (4.00-5.50); RED CELL DISTRIBUTION WIDTH 15.4 % (11.0-15.5); WHITE BLOOD COUNT (AUTO) 7.1 K/uL (4.8-10.8)
[2022-05-16 05:11] LABS: POTASSIUM 3.6 mmol/L (3.5-5.1)
[2022-05-16] MEDS: INSULIN HUMULIN R 100 UNIT/ML 3ML SQ SCH ×4 (06:31→21:00)
[2022-05-16] MEDS: ALBUTEROL 0.083% 2.5 MG/3 ML INH IH SCH ×3 (06:32→21:33)
[2022-05-16 07:30] VITALS: BP 113/47
[2022-05-16] MEDS ORDERED: TRAZODONE HCL 50 MG TAB PO PRN (10:00)
[2022-05-16] MEDS: PANTOPRAZOLE 40 MG TAB DR PO SCH (10:13)
[2022-05-16] MEDS: METOPROLOL TARTRATE 25 MG TAB PO SCH ×2 (10:13→21:00)
[2022-05-16] MEDS: DOCUSATE SODIUM 100 MG CAP PO SCH ×2 (10:13→22:38)
[2022-05-16] MEDS: ATORVASTATIN 10 MG TABLET PO SCH (10:14)
[2022-05-16] MEDS: ASPIRIN 81MG CHEW TAB PO SCH (10:14)
[2022-05-16] MEDS: POTASSIUM CHLORIDE 10MEQ SR TAB PO SCH (10:14)
[2022-05-16] MEDS: POLYETHYLENE GLYCOL 3350 17 GM POWD.PACK PO SCH (10:14)
[2022-05-16 11:00] VITALS: BP 100/48
[2022-05-16 16:00] VITALS: BP 97/64
[2022-05-16 20:00] VITALS: BP 83/48
[2022-05-16] MEDS: CEFTRIAXONE 2GM VIAL IVP SCH (22:38)
[2022-05-16] MEDS: ENOXAPARIN SODIUM 80 MG/0.8 ML SQ SCH (22:38)
[2022-05-17] VITALS: BP 117/76
[2022-05-17 04:00] VITALS: BP 104/48
[2022-05-17] MEDS: INSULIN HUMULIN R 100 UNIT/ML 3ML SQ SCH ×3 (06:33→22:15)
[2022-05-17] MEDS: ALBUTEROL 0.083% 2.5 MG/3 ML INH IH SCH ×3 (06:54→22:06)
[2022-05-17 07:30] VITALS: BP 101/48
[2022-05-17] MEDS: ATORVASTATIN 10 MG TABLET PO SCH (10:23)
[2022-05-17] MEDS: METOPROLOL TARTRATE 25 MG TAB PO SCH ×2 (10:23→21:00)
[2022-05-17] MEDS: PANTOPRAZOLE 40 MG TAB DR PO SCH (10:24)
[2022-05-17] MEDS: DOCUSATE SODIUM 100 MG CAP PO SCH ×2 (10:24→21:13)
[2022-05-17] MEDS: POLYETHYLENE GLYCOL 3350 17 GM POWD.PACK PO SCH (10:24)
[2022-05-17] MEDS: POTASSIUM CHLORIDE 10MEQ SR TAB PO SCH (10:24)
[2022-05-17] MEDS: ASPIRIN 81MG CHEW TAB PO SCH (10:25)
[2022-05-17 11:00] VITALS: BP 95/59
[2022-05-17 16:00] VITALS: BP 99/55
[2022-05-17 20:00] VITALS: BP 98/68
[2022-05-17] MEDS: ENOXAPARIN SODIUM 80 MG/0.8 ML SQ SCH (21:12)
[2022-05-17] MEDS: CEFTRIAXONE 2GM VIAL IVP SCH (21:13)
[2022-05-18] MEDS: INSULIN HUMULIN R 100 UNIT/ML 3ML SQ SCH ×4 (07:30→16:30)
[2022-05-18 08:00] VITALS: BP 125/45
[2022-05-18 09:00] VITALS: BP 125/45
[2022-05-18] MEDS: ALBUTEROL 0.083% 2.5 MG/3 ML INH IH SCH ×3 (09:00→20:02)
[2022-05-18] MEDS: DOCUSATE SODIUM 100 MG CAP PO SCH ×2 (09:00→21:37)
[2022-05-18] MEDS: POLYETHYLENE GLYCOL 3350 17 GM POWD.PACK PO SCH (09:00)
[2022-05-18] MEDS: ASPIRIN 81MG CHEW TAB PO SCH (09:06)
[2022-05-18] MEDS: POTASSIUM CHLORIDE 10MEQ SR TAB PO SCH (09:06)
[2022-05-18] MEDS: ATORVASTATIN 10 MG TABLET PO SCH (09:06)
[2022-05-18] MEDS: METOPROLOL TARTRATE 25 MG TAB PO SCH ×2 (09:06→21:37)
[2022-05-18] MEDS: PANTOPRAZOLE 40 MG TAB DR PO SCH (09:07)
[2022-05-18 12:00] VITALS: BP 92/50
[2022-05-18] MEDS: TRAZODONE HCL 50 MG TAB PO SCH ×2 (14:00→21:38)
[2022-05-18] MEDS: LINAGLIPTIN 5 MG TABLET PO SCH (15:15)
[2022-05-18 16:00] VITALS: BP 97/46
[2022-05-18 19:52] VITALS: BP 117/64
[2022-05-18] MEDS: CEFTRIAXONE 2GM VIAL IVP SCH (21:38)
[2022-05-18] MEDS: ENOXAPARIN SODIUM 80 MG/0.8 ML SQ SCH (21:38)
[2022-05-19 00:06] VITALS: BP 111/55
[2022-05-19 04:06] VITALS: BP 108/67
[2022-05-19 05:32] LABS: BASOPHILS % (AUTO) 0.5 % (0.0-5.0); EOSINOPHILS % (AUTO) 2.5 % (0.0-8.0); HEMATOCRIT 34.9 % (36-48); LYMPHOCYTES % (AUTO) 19.3 % (21.0-51.0); MEAN CORPUSCULAR HEMOGLOBIN 27.2 pg (27.0-33.0); MEAN CORPUSCULAR HGB CONC 31.5 g/dL (32.0-36.0); MEAN CORPUSCULAR VOLUME 86.2 fL (79-99); MONOCYTES % (AUTO) 6.6 % (3.0-13.0); NEUTROPHILS % (AUTO) 70.7 % (40.0-77.0); PLATELET COUNT (AUTO) 197 K/uL (130-400); RED BLOOD CELL COUNT(AUTO) 4.05 MIL/uL (4.00-5.50); RED CELL DISTRIBUTION WIDTH 15.2 % (11.0-15.5); WHITE BLOOD COUNT (AUTO) 7.6 K/uL (4.8-10.8)
[2022-05-19 05:47] LABS: ALBUMIN 2.3 g/dL (3.5-5.0); BILIRUBIN,TOTAL 0.2 mg/dL (0.2-1.0); POTASSIUM 3.8 mmol/L (3.5-5.1); TOTAL PROTEIN, SERUM 5.8 g/dL (6.0-8.3)
[2022-05-19] MEDS: INSULIN HUMULIN R 100 UNIT/ML 3ML SQ SCH ×2 (06:40→17:18)
[2022-05-19] MEDS: ALBUTEROL 0.083% 2.5 MG/3 ML INH IH SCH ×3 (07:00→19:57)
[2022-05-19 08:00] VITALS: BP 101/51
[2022-05-19] MEDS: ASPIRIN 81MG CHEW TAB PO SCH (10:44)
[2022-05-19] MEDS: DOCUSATE SODIUM 100 MG CAP PO SCH ×3 (10:44→21:20)
[2022-05-19] MEDS: ATORVASTATIN 10 MG TABLET PO SCH (10:44)
[2022-05-19] MEDS: METOPROLOL TARTRATE 25 MG TAB PO SCH ×3 (10:44→21:20)
[2022-05-19] MEDS: GUAIFENESIN-DM 200/20 MG 10 ML PO PRN (10:44)
[2022-05-19] MEDS: PANTOPRAZOLE 40 MG TAB DR PO SCH (10:44)
[2022-05-19] MEDS: POLYETHYLENE GLYCOL 3350 17 GM POWD.PACK PO SCH (10:45)
[2022-05-19] MEDS: LINAGLIPTIN 5 MG TABLET PO SCH (10:45)
[2022-05-19] MEDS: POTASSIUM CHLORIDE 10MEQ SR TAB PO SCH (10:56)
[2022-05-19 12:00] VITALS: BP 103/52
[2022-05-19 16:00] VITALS: BP 93/53
[2022-05-19 20:00] VITALS: BP 94/50
[2022-05-19] MEDS: CEFTRIAXONE 2GM VIAL IVP SCH (21:19)
[2022-05-19] MEDS: ENOXAPARIN SODIUM 80 MG/0.8 ML SQ SCH (21:19)
[2022-05-19] MEDS: TRAZODONE HCL 50 MG TAB PO SCH (21:20)
[2022-05-20] VITALS: BP 98/42
[2022-05-20 04:00] VITALS: BP 107/57
[2022-05-20 05:04] LABS: ALBUMIN 2.4 g/dL (3.5-5.0); BILIRUBIN,TOTAL 0.2 mg/dL (0.2-1.0); MAGNESIUM 1.8 mg/dL (1.80-2.40); POTASSIUM 4.1 mmol/L (3.5-5.1); TOTAL PROTEIN, SERUM 6.1 g/dL (6.0-8.3)
[2022-05-20 05:29] LABS: BASOPHILS % (AUTO) 0.6 % (0.0-5.0); EOSINOPHILS % (AUTO) 1.3 % (0.0-8.0); HEMATOCRIT 34.2 % (36-48); LYMPHOCYTES % (AUTO) 24.1 % (21.0-51.0); MEAN CORPUSCULAR HEMOGLOBIN 27.2 pg (27.0-33.0); MEAN CORPUSCULAR HGB CONC 31.6 g/dL (32.0-36.0); MEAN CORPUSCULAR VOLUME 86.1 fL (79-99); MONOCYTES % (AUTO) 7.1 % (3.0-13.0); NEUTROPHILS % (AUTO) 66.5 % (40.0-77.0); PLATELET COUNT (AUTO) 215 K/uL (130-400); RED BLOOD CELL COUNT(AUTO) 3.97 MIL/uL (4.00-5.50); RED CELL DISTRIBUTION WIDTH 15.2 % (11.0-15.5); WHITE BLOOD COUNT (AUTO) 8.3 K/uL (4.8-10.8)
[2022-05-20] MEDS: INSULIN HUMULIN R 100 UNIT/ML 3ML SQ SCH ×2 (06:24→17:13)
[2022-05-20] MEDS: ALBUTEROL 0.083% 2.5 MG/3 ML INH IH SCH ×3 (06:31→19:28)
[2022-05-20 08:00] VITALS: BP 117/65
[2022-05-20] MEDS: LINAGLIPTIN 5 MG TABLET PO SCH (09:46)
[2022-05-20] MEDS: ASPIRIN 81MG CHEW TAB PO SCH (09:46)
[2022-05-20] MEDS: POLYETHYLENE GLYCOL 3350 17 GM POWD.PACK PO SCH (09:46)
[2022-05-20] MEDS: DOCUSATE SODIUM 100 MG CAP PO SCH ×2 (09:46→20:21)
[2022-05-20] MEDS: PANTOPRAZOLE 40 MG TAB DR PO SCH (09:47)
[2022-05-20] MEDS: METOPROLOL TARTRATE 25 MG TAB PO SCH ×2 (09:47→20:22)
[2022-05-20] MEDS: POTASSIUM CHLORIDE 10MEQ SR TAB PO SCH (09:47)
[2022-05-20] MEDS: ATORVASTATIN 10 MG TABLET PO SCH (09:47)
[2022-05-20 12:07] VITALS: BP 108/69
[2022-05-20 16:00] VITALS: BP 95/47
[2022-05-20] MEDS ORDERED: FUROSEMIDE 20MG VIAL IV SCH (16:30)
[2022-05-20] MEDS: TRAZODONE HCL 50 MG TAB PO SCH (20:21)
[2022-05-20] MEDS: ENOXAPARIN SODIUM 80 MG/0.8 ML SQ SCH (20:21)
[2022-05-20 20:48] VITALS: BP 105/72
[2022-05-21 00:29] VITALS: BP 106/50
[2022-05-21 04:22] VITALS: BP 141/57
[2022-05-21 04:40] LABS: HEMATOCRIT 32.3 % (36-48); MEAN CORPUSCULAR HEMOGLOBIN 27.3 pg (27.0-33.0); MEAN CORPUSCULAR HGB CONC 31.6 g/dL (32.0-36.0); MEAN CORPUSCULAR VOLUME 86.6 fL (79-99); RED BLOOD CELL COUNT(AUTO) 3.73 MIL/uL (4.00-5.50); RED CELL DISTRIBUTION WIDTH 15.2 % (11.0-15.5); WHITE BLOOD COUNT (AUTO) 7.3 K/uL (4.8-10.8)
[2022-05-21 04:56] LABS: CREATININE 1.1 mg/dL (0.5-1.5); MAGNESIUM 2.3 mg/dL (1.80-2.40); POTASSIUM 4.4 mmol/L (3.5-5.1)
[2022-05-21] MEDS: INSULIN HUMULIN R 100 UNIT/ML 3ML SQ SCH ×2 (05:41→16:30)
[2022-05-21] MEDS: ALBUTEROL 0.083% 2.5 MG/3 ML INH IH SCH ×3 (07:15→20:42)
[2022-05-21 08:00] VITALS: BP 139/59
[2022-05-21] MEDS: POLYETHYLENE GLYCOL 3350 17 GM POWD.PACK PO SCH (08:31)
[2022-05-21] MEDS: ASPIRIN 81MG CHEW TAB PO SCH (08:31)
[2022-05-21] MEDS: LINAGLIPTIN 5 MG TABLET PO SCH (08:31)
[2022-05-21] MEDS: DOCUSATE SODIUM 100 MG CAP PO SCH ×2 (08:31→20:30)
[2022-05-21] MEDS: PANTOPRAZOLE 40 MG TAB DR PO SCH (08:31)
[2022-05-21] MEDS: METOPROLOL TARTRATE 25 MG TAB PO SCH ×2 (08:31→20:30)
[2022-05-21] MEDS: ATORVASTATIN 10 MG TABLET PO SCH (08:31)
[2022-05-21] MEDS: POTASSIUM CHLORIDE 10MEQ SR TAB PO SCH (08:32)
[2022-05-21 12:00] VITALS: BP 110/63
[2022-05-21 16:00] VITALS: BP 93/57
[2022-05-21 20:00] VITALS: BP 89/55
[2022-05-21] MEDS: TRAZODONE HCL 50 MG TAB PO SCH (20:30)
[2022-05-21] MEDS: ENOXAPARIN SODIUM 80 MG/0.8 ML SQ SCH (20:30)
[2022-05-22] VITALS (8 sets, daily range): BP systolic 89–125; BP diastolic 48–65
[2022-05-22] MEDS ORDERED: ALBUMIN (HUMAN) 25% 100 ML IV ONE (00:38)
[2022-05-22] MEDS: ALBUTEROL 0.083% 2.5 MG/3 ML INH IH SCH ×5 (00:59→23:15)
[2022-05-22] MEDS ORDERED: ALBUMIN (HUMAN) 25% 100 ML IV PRN (01:00)
[2022-05-22 04:25] LABS: HEMATOCRIT 31.2 % (36-48); MEAN CORPUSCULAR HEMOGLOBIN 27.2 pg (27.0-33.0); MEAN CORPUSCULAR HGB CONC 31.1 g/dL (32.0-36.0); MEAN CORPUSCULAR VOLUME 87.4 fL (79-99); RED BLOOD CELL COUNT(AUTO) 3.57 MIL/uL (4.00-5.50); RED CELL DISTRIBUTION WIDTH 15.2 % (11.0-15.5); WHITE BLOOD COUNT (AUTO) 7.4 K/uL (4.8-10.8)
[2022-05-22 04:44] LABS: CREATININE 1.1 mg/dL (0.5-1.5); POTASSIUM 4.8 mmol/L (3.5-5.1)
[2022-05-22] MEDS: INSULIN HUMULIN R 100 UNIT/ML 3ML SQ SCH ×2 (05:12→16:59)
[2022-05-22] MEDS: METOPROLOL TARTRATE 25 MG TAB PO SCH ×2 (08:23→20:58)
[2022-05-22] MEDS: LINAGLIPTIN 5 MG TABLET PO SCH (08:23)
[2022-05-22] MEDS: PANTOPRAZOLE 40 MG TAB DR PO SCH (08:23)
[2022-05-22] MEDS: DOCUSATE SODIUM 100 MG CAP PO SCH ×2 (08:24→20:58)
[2022-05-22] MEDS: POTASSIUM CHLORIDE 10MEQ SR TAB PO SCH (08:24)
[2022-05-22] MEDS: ATORVASTATIN 10 MG TABLET PO SCH (08:24)
[2022-05-22] MEDS: POLYETHYLENE GLYCOL 3350 17 GM POWD.PACK PO SCH (08:24)
[2022-05-22] MEDS: ASPIRIN 81MG CHEW TAB PO SCH (08:25)
[2022-05-22 14:24] LABS: ABG BASE EXCESS 0.2 mmol/L (-2.0-3.0); ABG HCO3 24.6 mmol/L (21.0-28.0); ABG OXYGEN SATURATION 95.2 % (95.0-99.0); ABG PCO2 39 mmHg (32-45)
[2022-05-22] MEDS: ALBUTEROL 0.083% 2.5 MG/3 ML INH IH PRN (14:35)
[2022-05-22] MEDS: ENOXAPARIN SODIUM 80 MG/0.8 ML SQ SCH (20:58)
[2022-05-22] MEDS: TRAZODONE HCL 50 MG TAB PO SCH (21:03)
[2022-05-23 00:30] VITALS: BP 110/48
[2022-05-23 03:30] VITALS: BP 101/64
[2022-05-23] MEDS: ALBUTEROL 0.083% 2.5 MG/3 ML INH IH SCH ×3 (04:50→19:00)
[2022-05-23] MEDS: INSULIN HUMULIN R 100 UNIT/ML 3ML SQ SCH ×2 (06:06→16:30)
[2022-05-23 07:00] VITALS: BP 106/59
[2022-05-23] MEDS: POLYETHYLENE GLYCOL 3350 17 GM POWD.PACK PO SCH (09:07)
[2022-05-23] MEDS: ASPIRIN 81MG CHEW TAB PO SCH (09:08)
[2022-05-23] MEDS: ATORVASTATIN 10 MG TABLET PO SCH (09:08)
[2022-05-23] MEDS: POTASSIUM CHLORIDE 10MEQ SR TAB PO SCH (09:08)
[2022-05-23] MEDS: DOCUSATE SODIUM 100 MG CAP PO SCH (09:08)
[2022-05-23] MEDS: METOPROLOL TARTRATE 25 MG TAB PO SCH (09:08)
[2022-05-23] MEDS: PANTOPRAZOLE 40 MG TAB DR PO SCH (09:08)
[2022-05-23] MEDS: LINAGLIPTIN 5 MG TABLET PO SCH (09:08)
[2022-05-23 11:00] VITALS: BP 101/74
[2022-05-23 16:00] VITALS: BP 122/56
== END 2022-05-23 19:56 | disposition short-term general hospital (02) | DRG 306 ==
LOC: EDH 11:17 → EDHIP 12:51 → 4CH 16:24 → 2AH 05-22 18:49
PROVIDERS: ADMIT Internal Medicine; ATTEND Internal Medicine
DX: I35.0 Nonrheumatic aortic (valve) stenosis (principal); U07.1 COVID-19; J12.82 Pneumonia due to coronavirus disease 2019; J96.01 Acute respiratory failure with hypoxia; I50.33 Acute on chronic diastolic (congestive) heart failure; D68.69 Other thrombophilia; N17.9 Acute kidney failure, unspecified; I48.92 Unspecified atrial flutter; I13.0 Hypertensive heart and chronic kidney disease with heart failure and stage 1 through stage 4 chronic kidney disease, or unspecified chronic kidney disease; I25.10 Atherosclerotic heart disease of native coronary artery without angina pectoris; I44.1 Atrioventricular block, second degree; I70.0 Atherosclerosis of aorta; E11.51 Type 2 diabetes mellitus with diabetic peripheral angiopathy without gangrene; I48.0 Paroxysmal atrial fibrillation; M41.9 Scoliosis, unspecified; R54 Age-related physical debility; I95.9 Hypotension, unspecified; D72.829 Elevated white blood cell count, unspecified; T38.0X5A Adverse effect of glucocorticoids and synthetic analogues, initial encounter; E11.65 Type 2 diabetes mellitus with hyperglycemia; L89.611 Pressure ulcer of right heel, stage 1; N18.31 Chronic kidney disease, stage 3a; E11.22 Type 2 diabetes mellitus with diabetic chronic kidney disease; E11.42 Type 2 diabetes mellitus with diabetic polyneuropathy; E78.5 Hyperlipidemia, unspecified; M19.90 Unspecified osteoarthritis, unspecified site; M85.80 Other specified disorders of bone density and structure, unspecified site; Z95.810 Presence of automatic (implantable) cardiac defibrillator; Z79.01 Long term (current) use of anticoagulants; Z86.718 Personal history of other venous thrombosis and embolism; Z79.899 Other long term (current) drug therapy; Y92.89 Other specified places as the place of occurrence of the external cause
CPT/HCPCS: 36415; 36600; 71045; 71250; 80048; 80053; 80061; 81001; 82435; 82728; 82803; 82947; 82948; 83036; 83605; 83615; 83735; 83880; 84100; 84132; 84145; 84295; 84443; 84484; 85018; 85025; 85027; 85378; 85610; 85730; 86140; 87635; 87804; 93005; 93970; 94010; 94640; 94760; 97039; C9803; G0378; J0456; J0696; J1650; J1815; J1940; J2920; J2930; J3475; J7050; P9046; Q0163